=== PATIENT | male | born 1985 | race American Indian/Alaskan Native ===

== ENCOUNTER 2021-12-12 17:57 | Emergency (ER) | payer OTHER ==
[2021-12-12 18:14] VITALS: BP 148/90; PULSE 89; TEMP 99.2; BMI 32.5
[2021-12-12] MEDS ORDERED: IBUPROFEN 400 MG TABLET (FP) PO ONE (19:46)
[2021-12-12] MEDS ORDERED: IBUPROFEN 600 MG TABLET (FP) PO ONE (19:47)
== END 2021-12-12 19:54 | disposition home or self-care (01) ==
LOC: FER 17:57
DX: M25.552 Pain in left hip (principal); V03.10XA Pedestrian on foot injured in collision with car, pick-up truck or van in traffic accident, initial encounter
CPT/HCPCS: 73502-TC-LT-FY; 73562-TC-LT-FY; 99284-25

== ENCOUNTER 2022-12-24 17:55 | Emergency (ER) | payer BC, OTHER ==
[2022-12-24 18:10] VITALS: BP 143/93; PULSE 99; RESP 18; TEMP 98.8; BMI 33.3
[2022-12-24] MEDS ORDERED: IBUPROFEN 400 MG TABLET (FP) PO ONE ×2 (19:00→19:06)
== END 2022-12-24 20:16 | disposition home or self-care (01) ==
LOC: FER 17:55
DX: S49.92XA Unspecified injury of left shoulder and upper arm, initial encounter (principal); W54.1XXA Struck by dog, initial encounter; W18.30XA Fall on same level, unspecified, initial encounter
CPT/HCPCS: 73030-TC-LT-FY; 73502-TC-LT-FY; 99284-25